=== PATIENT | female | born 1950 | race Caucasian/White ===

== ENCOUNTER 2019-04-22 06:06 | Day surgery (SDC) | payer MEDICARE ==
[2019-04-18 12:15] LABS: BASOPHILS % (AUTO) 0.5 % (0-1); EOSINOPHILS # (AUTO) 0.2 X10'3 (0-0.9); EOSINOPHILS % (AUTO) 3.1 % (0-6); LYMPHOCYTES % (AUTO) 40.4 % (21-51); MEAN CORPUSCULAR HEMOGLOBIN 31.3 PG (27.0-31.0); MEAN CORPUSCULAR HGB CONC 33.9 g/dL (33.0-36.5); MEAN CORPUSCULAR VOLUME 92.5 FL (78-98); MEAN PLATELET VOLUME 7.7 FL (7.4-10.4); MONOCYTES # (AUTO) 0.5 X10'3 (0-0.9); MONOCYTES % (AUTO) 7.2 % (2-12); NEUTROPHILS # (AUTO) 3.6 X10'3 (1.8-7.7); NEUTROPHILS % (AUTO) 48.8 % (42-75); PRE OP HEMATOCRIT 43.4 % (35.0-45.0); PRE OP HEMOGLOBIN 14.7 g/dL (12.0-16.0); PRE OP PLATELET COUNT 354 X10'3 (140-440); RED BLOOD COUNT 4.69 X10'6 (4.20-5.60)
[2019-04-18 12:30] LABS: PRE OP PROTIME 9.8 SECONDS (9.0-12.0)
[2019-04-18 12:33] LABS: ALBUMIN 3.9 G/DL (3.4-5.0); ALKALINE PHOSPHATASE 102 IU/L (46-116); BLOOD UREA NITROGEN 10 MG/DL (7-18); BUN/CREATININE RATIO 10.9 (6.6-38.0); CALCIUM 9.6 MG/DL (8.5-10.1); CHLORIDE 107 MMOL/L (99-107); CREATININE 0.92 MG/DL (0.40-0.90); PRE OP ALT 14 U/L (30-65); PRE OP ANION GAP 10 (8-16); PRE OP AST 13 U/L (10-37); PRE OP BILIRUB, TOTAL 0.4 MG/DL (0.0-1.0); PRE OP GLUCOSE 101 MG/DL (70-104); PRE OP POTASSIUM 3.6 MMOL/L (3.4-5.1); PRE OP SODIUM 143 MMOL/L (135-145); TOTAL CARBON DIOXIDE 26.5 MMOL/L (24-32); TOTAL PROTEIN 7.7 G/DL (6.4-8.2); eGFR 61 ML/MIN
[~2019-04-22] VITALS: Ht 160 cm; Wt 101.5 kg
[2019-04-22] VITALS (27 sets, daily range): BP systolic 118–171; BP diastolic 64–95
[~2019-04-22 06:06] MED LIST: ASCO125T PO; CHOL200077 PO; CYAN500T63 PO; LEVO88TA2 PO; LOSA25TA96 PO; famotidine 20mg tablet PO ONE; ringers solution, lacted 1,000 ML IV SCH
[2019-04-22] MEDS ORDERED: LIDOcaine 1% (10mg/ml) 2ml vial ONE (06:21)
[2019-04-22] MEDS ORDERED: oxymetazoline 15 ML nasal spray NS ONE ×3 (06:41→14:15)
[2019-04-22] MEDS ORDERED: BUPIVAcaine 0.5% W/EPI /PF 30ml vial ONE (06:41)
[2019-04-22] MEDS ORDERED: mupirocin 2% ointment 22GM ONE (06:41)
[2019-04-22] MEDS ORDERED: LIDOcaine 1% W/epiNEPHrine 1:100,000 20ml vial ONE (06:41)
[2019-04-22] MEDS ORDERED: cocaine 4% topical solution 4ml bottle ONE (06:41)
[2019-04-22] MEDS ORDERED: methylPREDNISolone acetate 80mg/ml inj**IM only ONE (08:03)
[2019-04-22] MEDS ORDERED: rocuronium 10mg/ml inj IV ONE (08:07)
[2019-04-22] MEDS ORDERED: sevoflurane 250ml liquid IH ONE (08:07)
[2019-04-22] MEDS ORDERED: midazolam 2 mg/2 ml injection ONE (08:10)
[2019-04-22] MEDS ORDERED: fentaNYL /PF 50mcg/ml 5ml ampule ONE (08:11)
[2019-04-22] MEDS ORDERED: propofol inj 20 ML IV ONE (08:12)
[2019-04-22] MEDS ORDERED: LIDOcaine 2% (20mg/ml) 5ml vial ONE (08:12)
[2019-04-22] MEDS ORDERED: dexamethasone sod phosphate 4mg/ml inj. ONE (08:22)
[2019-04-22] MEDS ORDERED: ondansetron/PF 4mg/2ml inj ONE (08:22)
[2019-04-22] MEDS ORDERED: clindamycin phosphate 150mg/ml inj. ONE ×2 (08:28)
[2019-04-22] MEDS ORDERED: morphine 2 MG/ML inj. syringe IV PRN (08:45)
[2019-04-22] MEDS ORDERED: proCHLORperazine 10 MG/2 ml inj IV PRN (08:45)
[2019-04-22] MEDS ORDERED: ondansetron/PF 4mg/2ml inj IV PRN (08:45)
[2019-04-22] MEDS ORDERED: ringers solution, lacted 1,000 ML IV SCH (08:45)
[2019-04-22] MEDS ORDERED: meperidine/PF 25mg/ml syringe IV PRN ×3 (08:45)
[2019-04-22] MEDS ORDERED: morphine 4 MG/ML inj SYRINge IV PRN (08:45)
[2019-04-22] MEDS ORDERED: ePHEDrine 50MG/ML INJ. ONE (09:32)
[2019-04-22] MEDS ORDERED: metoprolol tartrate 1mg/ml inj IV ONE (09:32)
--- NOTE | 2019-04-22 11:18 | NUR ---
Received from OR via [facility], accompanied by Anesthesiologist DR BARR and report given by Anesthesiologist. PT VERY DROWSY, NO S/S OF DISTRESS/DISCOMFORT, LEFT NARE W/COTTONOID IN PLACE. Addendum: 04/22/19 at 1152 by Tara Madera RN Amended: Links added.
[2019-04-22] MEDS ORDERED: labetalol 20mg/4ml (5mg/ml) syringe IV ONE ×2 (12:40→12:46)
[2019-04-22] MEDS ORDERED: labetalol 20mg/4ml (5mg/ml) syringe IV PRN (12:50)
[2019-04-22] MEDS ORDERED: salt irrigation nasal spray 45 ML SPRAY NS PRN (13:50)
[2019-04-22] MEDS ORDERED: proMETHazine 25mg rectal suppository RC ONE (13:55)
[2019-04-22] MEDS ORDERED: scopolamine 1.5mg patch.TD72 TD ONE (13:55)
--- NOTE | 2019-04-22 15:28 | NUR ---
PT NAUSEA SUBSIDED, ABLE TO AMBULATE, VOIDED, DR MCCONNELL IN TO SEE HER, OKAY TO D/CD TO HOME. D/C INSTRUCTIONS GIVEN AND GONE OVER W/PT AND PTS FAMILY WHOM VERBALIZED UNDERSTANDING. PT D/CD TO HOME VIA W/C TO PRIVATE VEHICLE W/O INCIDENT. Addendum: 04/22/19 at 1616 by Tara Madera RN Amended: Links added.
[2019-04-22] MEDS ORDERED: oxymetazoline 15 ML nasal spray NS SCH (20:00)
== END 2019-04-22 15:28 | disposition home or self-care (01) ==
LOC: PAS 06:06
PROVIDERS: ATTEND Otolaryngology
DX: D16.4 Benign neoplasm of bones of skull and face (principal); J34.2 Deviated nasal septum; J34.1 Cyst and mucocele of nose and nasal sinus; Z98.890 Other specified postprocedural states; Z98.51 Tubal ligation status; Z90.49 Acquired absence of other specified parts of digestive tract; Z88.8 Allergy status to other drugs, medicaments and biological substances; E03.9 Hypothyroidism, unspecified; Z86.11 Personal history of tuberculosis; E66.9 Obesity, unspecified; Z68.41 Body mass index [BMI] 40.0-44.9, adult; Z87.891 Personal history of nicotine dependence; I10 Essential (primary) hypertension; G47.33 Obstructive sleep apnea (adult) (pediatric); E05.00 Thyrotoxicosis with diffuse goiter without thyrotoxic crisis or storm
CPT/HCPCS: 30140; 31254; 36415; 61782; 80053; 82948; 85025; 85576; 85610; 85730; 93005; A6402; C1726; C2625; C9250; J0780; J1040; J1100; J2001; J2250; J2405; J2704; J3010; J3490; J7040; J7120; 88304; 88311; A4618; A7000